=== PATIENT | female | born 1955 | race Two or more races ===

== ENCOUNTER 2016-06-14 17:47 | Emergency (ER) | payer OTHER ==
[~2016-06-14] VITALS: Ht 165.1 cm; Wt 52.2 kg
[~2016-06-14 17:47] MED LIST: FLUO40CA8 PO; GABA-534 PO
--- NOTE | 2016-06-14 17:47 | NUR ---
Presents self to ed dt nausea x 1 week. Denies vomitting. Pt afebrile. patient is also concern about " a pimple" on her labia. Denies hematuria and dysuria. vss
[2016-06-14] MEDS ORDERED: ONDANSETRON 4 MG TAB.RAPDIS SL ONE (18:30)
[2016-06-14] MEDS ORDERED: ONDANSETRON 4 MG TAB.RAPDIS ONE (18:44)
--- NOTE | 2016-06-14 18:48 | NUR ---
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
--- NOTE | 2016-06-14 18:48 | NUR ---
medicated pt as ordered
[2016-06-14 18:56] LABS: BASOPHILS # (AUTO) 0.1 /CMM (0.0-0.2); BASOPHILS % (AUTO) 0.7 % (0.0-2.0); EOSINOPHILS # (AUTO) 0.6 /CMM (0.0-0.7); EOSINOPHILS % (AUTO) 7.9 % (0.0-6.0); HEMATOCRIT 37 % (33-45); HEMOGLOBIN 12.8 g/dL (11.5-14.8); LYMPHOCYTES # (AUTO) 2.5 /CMM (0.8-4.8); LYMPHOCYTES % (AUTO) 31.6 % (20.0-44.0); MEAN CORPUSCULAR HEMOGLOBIN 30 PG (26.0-33.0); MEAN CORPUSCULAR HGB CONC 35 g/dl (31.0-36.0); MEAN CORPUSCULAR VOLUME 86 fL (82-100); MONOCYTES # (AUTO) 0.6 /CMM (0.1-1.30); MONOCYTES % (AUTO) 7.2 % (2.0-12.0); NEUTROPHILS % (AUTO) 52.6 % (43.0-81.0); PLATELET COUNT (AUTO) 177 /CMM (150-450); RDW COEFFICIENT OF VARIATION 12.6 (11.5-15.0); WHITE BLOOD COUNT (AUTO) 7.8 K/uL (4.3-11.0)
[2016-06-14 19:04] LABS: APPEARANCE,URINE Clear (CLEAR); BILIRUBIN,URINE Negative (NEGATIVE); BLOOD, URINE Trace-intact Ery/uL (NEGATIVE); COLOR,URINE Yellow (YELLOW); CREATININE 1.1 mg/dL (0.6-1.3); KETONES,URINE Negative (NEGATIVE); LEUKOCYTE ESTERASE ,URINE Negative (NEGATIVE); NITRITE, URINE Negative (NEGATIVE); PH,URINE 8.5 (5.0-8.0); POTASSIUM 3.9 mmol/L (3.5-5.1); PROTEIN,URINE Negative (NEGATIVE); UGLUCOSE Negative (NEGATIVE); UROBILINOGEN,URINE 0.2 EU/dL (0.2)
[2016-06-14 19:08] LABS: ADD URINE CULTURE NO; BACTERIA,URINE Rare /HPF (None Seen); RBC,URINE 0-2 /HPF (0-2); SQUAMOUS EPITHELIAL CELL,UR Few /HPF (None Seen); WBC,URINE 0-2 /HPF (0-3)
[2016-06-14 19:10] LABS: ALBUMIN 3.6 g/dL (3.4-5.0); BILIRUBIN,DIRECT 0.1 mg/dL (0.0-0.2); BILIRUBIN,TOTAL 0.1 mg/dL (0.2-1.0); TOTAL PROTEIN, SERUM 7.2 g/dL (6.4-8.2)
--- NOTE | 2016-06-14 19:11 | NUR ---
report given to nurse Vegas for carmen
[2016-06-14 20:36] VITALS: BP 120/70
== END 2016-06-14 20:37 | disposition home or self-care (01) ==
LOC: ER 17:49
DX: R11.0 Nausea (principal); R10.13 Epigastric pain; K59.00 Constipation, unspecified; I38 Endocarditis, valve unspecified; F32.9 Major depressive disorder, single episode, unspecified; Z88.0 Allergy status to penicillin; Z88.2 Allergy status to sulfonamides
CPT/HCPCS: 36415; 80048-TC; 80076-TC; 81000-TC; 83690-TC; 85025-TC; A4606; Q0162; Z7610

== ENCOUNTER 2016-12-30 16:09 | Emergency (ER) | payer OTHER ==
[~2016-12-30] VITALS: Ht 167.6 cm; Wt 54.4 kg
[2016-12-30 16:18] VITALS: BP 116/60
== END 2016-12-30 16:43 | disposition home or self-care (01) ==
LOC: ER 16:10
DX: J11.1 Influenza due to unidentified influenza virus with other respiratory manifestations (principal); F32.9 Major depressive disorder, single episode, unspecified; G25.81 Restless legs syndrome; Z88.0 Allergy status to penicillin; Z88.2 Allergy status to sulfonamides
CPT/HCPCS: 99283; A4606; Z7610

== ENCOUNTER 2017-02-16 17:28 | Emergency (ER) | payer OTHER ==
[~2017-02-16] VITALS: Ht 165.1 cm; Wt 52.2 kg
--- NOTE | 2017-02-16 17:40 | NUR ---
PATIENT TO ED DT INTERMITTENT CHEST PAIN X 3 DAYS. PER PT SHE DOES NOT HAVE CHEEST PAIN AT THIS MOMENT, HOWEVER SHE HAD ONE EPISODE TODAY THAT LASTED FOR ONE MINUTE,PAIN WAS NON RADIATING. PATIENT IS AAO4, APPEARS IN NO APPARENT DISTRESS. SKIN IS WARM TO TOUCH AND NON DIAPHORETIC. AFEBRILE. VSS
[2017-02-16] MEDS ORDERED: PRAV40TA3 PO (17:51)
[2017-02-16] MEDS ORDERED: GABA-534 PO (17:51)
[2017-02-16 18:05] LABS: CALCIUM, SERUM 9.3 mg/dL (8.5-10.1); CARBON DIOXIDE 28 mmol/L (21-32); CHLORIDE 101 mmol/L (98-107); GLUCOSE 95 mg/dL (74-106); POTASSIUM 3.5 mmol/L (3.5-5.1); SODIUM SERUM 137 mmol/L (136-145); UREA NITROGEN, BLOOD 15 mg/dL (7-18)
[2017-02-16 18:15] LABS: TROPONIN I < 0.017 ng/mL (0.00-0.056)
[2017-02-16 18:20] LABS: BASOPHILS # (AUTO) 0.1 /CMM (0.0-0.2); BASOPHILS % (AUTO) 0.8 % (0.0-2.0); EOSINOPHILS # (AUTO) 0.4 /CMM (0.0-0.7); EOSINOPHILS % (AUTO) 4.5 % (0.0-6.0); HEMATOCRIT 41 % (33-45); HEMOGLOBIN 13.8 g/dL (11.5-14.8); LYMPHOCYTES # (AUTO) 2.5 /CMM (0.8-4.8); LYMPHOCYTES % (AUTO) 28.3 % (20.0-44.0); MEAN CORPUSCULAR HEMOGLOBIN 29 PG (26.0-33.0); MEAN CORPUSCULAR HGB CONC 34 g/dl (31.0-36.0); MEAN CORPUSCULAR VOLUME 86 fL (82-100); MONOCYTES # (AUTO) 0.7 /CMM (0.1-1.30); MONOCYTES % (AUTO) 7.8 % (2.0-12.0); NEUTROPHILS % (AUTO) 58.6 % (43.0-81.0); PLATELET COUNT (AUTO) 217 /CMM (150-450); RDW COEFFICIENT OF VARIATION 12.6 (11.5-15.0); WHITE BLOOD COUNT (AUTO) 8.7 K/uL (4.3-11.0)
--- NOTE | 2017-02-16 19:03 | NUR ---
REPORT GIVEN TO CIRA HUTCHINS FOR EMILY
--- NOTE | 2017-02-16 19:06 | NUR ---
REPORT RECEIVED FROM [employer] FOR EMILY.
[2017-02-16 19:14] VITALS: BP 124/74
== END 2017-02-16 19:15 | disposition home or self-care (01) ==
LOC: ER 17:29
DX: R07.89 Other chest pain (principal); G25.81 Restless legs syndrome; F32.9 Major depressive disorder, single episode, unspecified; Z88.0 Allergy status to penicillin; Z88.2 Allergy status to sulfonamides
CPT/HCPCS: 36415; 71010; 80048; 84484; 85025; 93005; 99285; A4606; Z7610

== ENCOUNTER 2017-09-21 18:09 | Emergency (ER) | payer OTHER ==
[~2017-09-21] VITALS: Ht 165.1 cm; Wt 53.5 kg
[~2017-09-21 18:09] MED LIST changes: +PRAV40TA3 PO
[2017-09-21 19:24] VITALS: BP 97/50
--- NOTE | 2017-09-21 19:37 | NUR ---
PT CAME 1933 C/C RT SHOULDER PAIN, VS STABLE, AFEBRILE, SEEN AND EVALUATED BY DR LEIGH, AWAITING FOR ORDERS.
[2017-09-21] MEDS ORDERED: ACETAMINOPHEN ES 500 MG TABLET ONE (20:16)
[2017-09-21] MEDS ORDERED: ACETAMINOPHEN ES 500 MG TABLET PO ONE (20:30)
== END 2017-09-21 22:57 | disposition home or self-care (01) ==
LOC: ER 18:14
DX: M25.511 Pain in right shoulder (principal); F32.9 Major depressive disorder, single episode, unspecified; G25.81 Restless legs syndrome; Z88.0 Allergy status to penicillin; Z88.2 Allergy status to sulfonamides; Z79.899 Other long term (current) drug therapy
CPT/HCPCS: 73030-TC; A4606; Z7610

== ENCOUNTER 2018-01-31 14:26 | Emergency (ER) | payer OTHER ==
[~2018-01-31] VITALS: Ht 165.1 cm; Wt 56.2 kg
--- NOTE | 2018-01-31 14:50 | NUR ---
Chasity douglass in EDM - 01/31/18 at 1533 by LESLEE PT BIB SELF C/O INTERMITTENT CHEST PAIN SINCE LAST WEEK. PT IS AOX4, NOT IN RESPIRATORY DISTRESS, V/S STABLE, KEPT RESTED AND COMFORTABLE.
--- NOTE | 2018-01-31 14:50 | NUR ---
AAOX3, C/O CP X1.5 WKS INTERMITTENTLY. RR IS EVEN AND UNLABORED WITH NAD NOTED. PLACED ON THE MONITOR. AWAITING MD FOR EVAL.
[2018-01-31 15:11] LABS: BASOPHILS % (AUTO) 0.7 % (0.0-2.0); EOSINOPHILS % (AUTO) 4.4 % (0.0-6.0); HEMATOCRIT 39 % (33-45); HEMOGLOBIN 12.9 g/dL (11.5-14.8); LYMPHOCYTES # (AUTO) 2.2 /CMM (0.8-4.8); LYMPHOCYTES % (AUTO) 30.5 % (20.0-44.0); MEAN CORPUSCULAR HGB CONC 33 g/dl (31.0-36.0); MEAN CORPUSCULAR VOLUME 88 fL (82-100); MONOCYTES # (AUTO) 0.5 /CMM (0.1-1.30); MONOCYTES % (AUTO) 7.3 % (2.0-12.0); NEUTROPHILS # (AUTO) 4.2 /CMM (1.8-8.9); NEUTROPHILS % (AUTO) 57.1 % (43.0-81.0); PLATELET COUNT (AUTO) 186 /CMM (150-450); RED BLOOD CELL COUNT(AUTO) 4.38 MIL/uL (4.0-5.2); WHITE BLOOD COUNT (AUTO) 7.3 K/uL (4.3-11.0)
--- NOTE | 2018-01-31 15:22 | NUR ---
Chasity douglass in ED - 01/31/18 at 1542 by LESLEE PT WHEELED TO EVIE VIA LASHELL.
[2018-01-31 15:24] LABS: CALCIUM, SERUM 8.6 mg/dL (8.5-10.1); CARBON DIOXIDE 29 mmol/L (21-32); CHLORIDE 101 mmol/L (98-107); CREATININE 1.1 mg/dL (0.6-1.3); GLUCOSE 129 mg/dL (74-106); POTASSIUM 3.5 mmol/L (3.5-5.1); SODIUM SERUM 138 mmol/L (136-145); UREA NITROGEN, BLOOD 23 mg/dL (7-18)
--- NOTE | 2018-01-31 17:12 | NUR ---
IV removed. Catheter intact and site benign. Pressure and 4x4 applied to site. No bleeding noted. Patient discharged to home in stable condition. Written and verbal after care instructions given. Patient verbalizes understanding of instruction.
--- NOTE | 2018-01-31 17:12 | NUR ---
IV removed. Catheter intact and site benign. Pressure and 4x4 applied to site. No bleeding noted.Patient discharged to home in stable condition. Written and verbal after care instructions given. Patient verbalizes understanding of instruction.
[2018-01-31 17:13] VITALS: BP 112/79
== END 2018-01-31 17:16 | disposition home or self-care (01) ==
LOC: ER 14:29
DX: R07.89 Other chest pain (principal); F32.9 Major depressive disorder, single episode, unspecified; Z88.0 Allergy status to penicillin; Z88.2 Allergy status to sulfonamides; Z60.2 Problems related to living alone; Z79.899 Other long term (current) drug therapy
CPT/HCPCS: 36415; 71045-TC; 80048-TC; 84484-TC; 85025-TC; 85730-TC; A4606; Z7610

== ENCOUNTER 2018-07-06 15:11 | Emergency (ER) | payer OTHER ==
[~2018-07-06] VITALS: Ht 165.1 cm; Wt 68.0 kg
--- NOTE | 2018-07-06 15:17 | NUR ---
CAME IN FOR LEFT SIDED CP SINCE 10AM, WAS SEEN IN CLINIC LAST WEEK, WAS ADVISED TO HAVE CT IN [place] [facility]. NO CT DONE. 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
--- NOTE | 2018-07-06 15:31 | NUR ---
MELQUIADES MELENDEZ AT BEDSIDE
[2018-07-06] MEDS ORDERED: POLY15DR40 EACHEYE (15:34)
[2018-07-06 15:41] LABS: BASOPHILS % (AUTO) 0.8 % (0.0-2.0); EOSINOPHILS % (AUTO) 4.7 % (0.0-6.0); HEMATOCRIT 40 % (33-45); HEMOGLOBIN 13.3 g/dL (11.5-14.8); LYMPHOCYTES # (AUTO) 2.5 /CMM (0.8-4.8); LYMPHOCYTES % (AUTO) 40.9 % (20.0-44.0); MEAN CORPUSCULAR HGB CONC 33 g/dl (31.0-36.0); MEAN CORPUSCULAR VOLUME 89 fL (82-100); MONOCYTES # (AUTO) 0.4 /CMM (0.1-1.30); MONOCYTES % (AUTO) 7.2 % (2.0-12.0); NEUTROPHILS # (AUTO) 2.9 /CMM (1.8-8.9); NEUTROPHILS % (AUTO) 46.4 % (43.0-81.0); PLATELET COUNT (AUTO) 185 /CMM (150-450); RED BLOOD CELL COUNT(AUTO) 4.51 MIL/uL (4.0-5.2); WHITE BLOOD COUNT (AUTO) 6.2 K/uL (4.3-11.0)
[2018-07-06 15:49] LABS: CARBON DIOXIDE 28 mmol/L (21-32); CHLORIDE 102 mmol/L (98-107); GLUCOSE 152 mg/dL (74-106); POTASSIUM 3.7 mmol/L (3.5-5.1); SODIUM SERUM 139 mmol/L (136-145); UREA NITROGEN, BLOOD 12 mg/dL (7-18)
[2018-07-06 15:55] LABS: ALANINE AMINOTRANSFERASE 19 U/L (12-78); ALBUMIN 3.6 g/dL (3.4-5.0); ALKALINE PHOSPHATASE 61 U/L (46-116); ASPARTATE AMINOTRANSFERASE 16 U/L (15-37); BILIRUBIN,DIRECT 0.1 mg/dL (0.0-0.2); BILIRUBIN,TOTAL 0.3 mg/dL (0.2-1.0); LIPASE 191 U/L (73-393); TOTAL PROTEIN, SERUM 7.4 g/dL (6.4-8.2)
[2018-07-06] MEDS ORDERED: IV NS 0.9% 500 ML BAG IV ONE (16:00)
--- NOTE | 2018-07-06 16:00 | NUR ---
CHASER TAR AT BEDSIDE
[2018-07-06 16:30] VITALS: BP 106/64
== END 2018-07-06 16:30 | disposition home or self-care (01) ==
LOC: ER 15:13
DX: G89.29 Other chronic pain (principal); R07.89 Other chest pain; E78.00 Pure hypercholesterolemia, unspecified; F32.9 Major depressive disorder, single episode, unspecified; Z88.0 Allergy status to penicillin; Z88.2 Allergy status to sulfonamides; Z60.2 Problems related to living alone
CPT/HCPCS: 36415; 71045; 80048; 80076; 83690; 84484; 85025; 99284; J7040

== ENCOUNTER 2018-11-21 04:09 | Emergency (ER) | payer OTHER ==
[~2018-11-21] VITALS: Ht 165.1 cm; Wt 46.7 kg
[~2018-11-21 04:09] MED LIST changes: +POLY15DR40 EACHEYE
--- NOTE | 2018-11-21 04:15 | NUR ---
PT BIBSELF C/O LOW BP, PT STATES BP BEING IN THE 90S, PT AT THIS TIME HAS NORMAL BP. PT AXO4. RESPIRATIONS EVEN AND UNLABORED. PT AMBULATORY WITH STEADY GAIT. PT PUT ON THE BILLET SAWYER AND PULSE OX.
--- NOTE | 2018-11-21 04:36 | NUR ---
MAILROOM PERSONNEL AT BEDSIDE, LAB DRAWN THROUGH 20G LAC AND SENT TO LABS.
[2018-11-21] MEDS: IV NS 0.9% 1,000 ML BAG IV ONE (04:38)
[2018-11-21 04:47] LABS: BASOPHILS % (AUTO) 0.6 % (0.0-2.0); EOSINOPHILS % (AUTO) 6.4 % (0.0-6.0); HEMATOCRIT 37 % (33-45); HEMOGLOBIN 12.2 g/dL (11.5-14.8); LYMPHOCYTES # (AUTO) 2.6 /CMM (0.8-4.8); LYMPHOCYTES % (AUTO) 33.2 % (20.0-44.0); MEAN CORPUSCULAR HGB CONC 34 g/dl (31.0-36.0); MEAN CORPUSCULAR VOLUME 89 fL (82-100); MONOCYTES # (AUTO) 0.6 /CMM (0.1-1.30); MONOCYTES % (AUTO) 7.6 % (2.0-12.0); NEUTROPHILS # (AUTO) 4.1 /CMM (1.8-8.9); NEUTROPHILS % (AUTO) 52.2 % (43.0-81.0); PLATELET COUNT (AUTO) 187 /CMM (150-450); RED BLOOD CELL COUNT(AUTO) 4.12 MIL/uL (4.0-5.2); WHITE BLOOD COUNT (AUTO) 7.8 K/uL (4.3-11.0)
[2018-11-21 05:02] LABS: CALCIUM, SERUM 9.1 mg/dL (8.5-10.1); CARBON DIOXIDE 29 mmol/L (21-32); CHLORIDE 104 mmol/L (98-107); GLUCOSE 78 mg/dL (74-106); POTASSIUM 3.8 mmol/L (3.5-5.1); SODIUM SERUM 141 mmol/L (136-145); UREA NITROGEN, BLOOD 20 mg/dL (7-18)
[2018-11-21 05:14] LABS: ALANINE AMINOTRANSFERASE 17 U/L (12-78); ALBUMIN 3.4 g/dL (3.4-5.0); ALKALINE PHOSPHATASE 63 U/L (46-116); ASPARTATE AMINOTRANSFERASE 14 U/L (15-37); B-TYPE NATRIURETIC PEPTIDE 151 PG/ML (0-125); BILIRUBIN,DIRECT 0.1 mg/dL (0.0-0.2); BILIRUBIN,TOTAL 0.2 mg/dL (0.2-1.0)
[2018-11-21 05:33] VITALS: BP 116/74
--- NOTE | 2018-11-21 05:33 | NUR ---
Patient discharged to home in stable condition. Written and verbal after care instructions given. Patient verbalizes understanding of instruction. IV removed. Catheter intact and site benign. Pressure and 4x4 applied to site. No bleeding noted.
== END 2018-11-21 05:33 | disposition home or self-care (01) ==
LOC: ER 04:09
DX: E86.0 Dehydration (principal); E78.00 Pure hypercholesterolemia, unspecified; F32.9 Major depressive disorder, single episode, unspecified; Z88.0 Allergy status to penicillin; Z88.2 Allergy status to sulfonamides; Z60.2 Problems related to living alone
CPT/HCPCS: 36415; 80048; 80076; 83880; 84484; 85025; 93005; 96360; 99284; J7030

== ENCOUNTER 2018-12-12 04:34 | Emergency (ER) | payer OTHER ==
[~2018-12-12] VITALS: Ht 165.1 cm; Wt 45.4 kg
[2018-12-12 04:39] VITALS: BP 121/79
[2018-12-12] MEDS ORDERED: TDAP [DIPH/PERTUSSIS/TET] 0.5 ML VIAL IM ONE ×2 (05:00→05:03)
--- NOTE | 2018-12-12 05:14 | NUR ---
RADIOLOGY AT BEDSIDE FOR XRAY
== END 2018-12-12 05:56 | disposition home or self-care (01) ==
LOC: ER 04:41
DX: S80.02XA Contusion of left knee, initial encounter (principal); S80.01XA Contusion of right knee, initial encounter; E78.00 Pure hypercholesterolemia, unspecified; F32.9 Major depressive disorder, single episode, unspecified; Z88.0 Allergy status to penicillin; Z88.2 Allergy status to sulfonamides; Z60.2 Problems related to living alone; W01.0XXA Fall on same level from slipping, tripping and stumbling without subsequent striking against object, initial encounter; Y93.89 Activity, other specified; Y92.89 Other specified places as the place of occurrence of the external cause; Y99.9 Unspecified external cause status
CPT/HCPCS: 73560-TC; 73564-TC; 90715

== ENCOUNTER 2018-12-14 21:13 | Emergency (ER) | payer OTHER ==
[~2018-12-14] VITALS: Ht 165.1 cm; Wt 45.4 kg
[2018-12-14 21:24] VITALS: BP 119/76
== END 2018-12-14 22:30 | disposition home or self-care (01) ==
LOC: ER 21:14
DX: S80.212D Abrasion, left knee, subsequent encounter (principal); S80.211D Abrasion, right knee, subsequent encounter; E78.00 Pure hypercholesterolemia, unspecified; F32.9 Major depressive disorder, single episode, unspecified; Z88.0 Allergy status to penicillin; Z88.2 Allergy status to sulfonamides; Z60.2 Problems related to living alone; W01.0XXD Fall on same level from slipping, tripping and stumbling without subsequent striking against object, subsequent encounter

== ENCOUNTER 2019-08-06 12:01 | Emergency (ER) | payer OTHER ==
[~2019-08-06] VITALS: Ht 165.1 cm; Wt 45.4 kg
--- NOTE | 2019-08-06 12:10 | NUR ---
c/o nausea vomiting, diarrhea, weak, no appetite to eat s/p chemo saturday. Patient a/ox4, breathing even and unlabored, no sob noted, needs attended, kept comfortable.
[2019-08-06] MEDS ORDERED: FAMOTIDINE/PF INJ 20 MG/2 ML VIAL IV ONE ×2 (12:29→12:30)
[2019-08-06] MEDS ORDERED: ONDANSETRON HCL/PF 4 MG/2 ML VIAL ONE (12:29)
[2019-08-06] MEDS ORDERED: ONDANSETRON HCL/PF 4 MG/2 ML VIAL IVP ONE (12:30)
[2019-08-06] MEDS ORDERED: IV NS 0.9% 1,000 ML BAG IV ONE (12:30)
[2019-08-06 12:40] LABS: HEMOGLOBIN 11.4 g/dL (11.5-14.8); MEAN CORPUSCULAR VOLUME 89 fL (82-100); MONOCYTES # (AUTO) 0.9 /CMM (0.1-1.30)
[2019-08-06 12:45] LABS: BASOPHILS % (AUTO) 1.2 % (0.0-2.0); EOSINOPHILS % (AUTO) 4.4 % (0.0-6.0); HEMATOCRIT 35 % (33-45); LYMPHOCYTES # (AUTO) 0.5 /CMM (0.8-4.8); LYMPHOCYTES % (AUTO) 33.9 % (20.0-44.0); MEAN CORPUSCULAR HGB CONC 33 g/dl (31.0-36.0); MONOCYTES % (AUTO) 56.2 % (2.0-12.0); NEUTROPHILS # (AUTO) 0.1 /CMM (1.8-8.9); NEUTROPHILS % (AUTO) 4.3 % (43.0-81.0); PLATELET COUNT (AUTO) 99 /CMM (150-450); RED BLOOD CELL COUNT(AUTO) 3.89 MIL/uL (4.0-5.2)
[2019-08-06 12:46] LABS: CALCIUM, SERUM 8.7 mg/dL (8.5-10.1); CREATININE 1.1 mg/dL (0.6-1.3); POTASSIUM 4.8 mmol/L (3.5-5.1)
[2019-08-06 12:47] LABS: WHITE BLOOD COUNT (AUTO) 1.6 K/uL (4.3-11.0)
[2019-08-06] MEDS ORDERED: CHEMO IV (12:49)
[2019-08-06] MEDS ORDERED: DEXA4TAB PO (12:49)
[2019-08-06] MEDS ORDERED: CALC-7 PO (12:49)
[2019-08-06] MEDS ORDERED: ASCO-352 PO (12:49)
[2019-08-06] MEDS ORDERED: ONDA8TAB6 GT (12:49)
[2019-08-06 12:52] LABS: ALBUMIN 3.1 g/dL (3.4-5.0); BILIRUBIN,DIRECT 0.1 mg/dL (0.0-0.2); BILIRUBIN,TOTAL 0.5 mg/dL (0.2-1.0); TOTAL PROTEIN, SERUM 6.6 g/dL (6.4-8.2)
--- NOTE | 2019-08-06 13:12 | NUR ---
MOVE SHEET SUBMITTED AND CALLED FOR MS BED.
[2019-08-06 13:21] LABS: EOSINOPHILS % (MANUAL) 4 % (0-4); LYMPHOCYTES % (MANUAL) 39 % (16-48); MONOCYTES % (MANUAL) 53 % (0-11.0); NEUTROPHILS % (MANUAL) 4 (42-76)
--- NOTE | 2019-08-06 13:30 | NUR ---
CALLED DR. JOHNSTON AT [facility] [phone] WILL BE EMAILED TO CALL US BACK.
--- NOTE | 2019-08-06 13:45 | NUR ---
dr. angulo returned call and is speaking to dr. kuhn
[2019-08-06 14:16] VITALS: BP 102/52
== END 2019-08-06 14:17 | disposition home or self-care (01) ==
LOC: ER 12:06
DX: R11.2 Nausea with vomiting, unspecified (principal); R19.7 Diarrhea, unspecified; D72.819 Decreased white blood cell count, unspecified; E78.00 Pure hypercholesterolemia, unspecified; Z85.3 Personal history of malignant neoplasm of breast; Z88.0 Allergy status to penicillin; Z88.2 Allergy status to sulfonamides; Z79.899 Other long term (current) drug therapy
CPT/HCPCS: 36415; 80048; 80076; 83690; 85025; 87081; 96361; 96374; 96375; 99284; J2405; J3490

== ENCOUNTER 2019-08-07 13:39 | Emergency (ER) | payer OTHER ==
[~2019-08-07] VITALS: Ht 165.1 cm; Wt 45.4 kg
[~2019-08-07 13:39] MED LIST changes: +ASCO-352 PO; +CALC-7 PO; +CHEMO IV; +DEXA4TAB PO; +ONDA8TAB6 GT
[2019-08-07 13:54] VITALS: BP 92/60
--- NOTE | 2019-08-07 15:10 | NUR ---
For discharde- Patient discharged to home in stable condition. Written and verbal after care instructions given. Patient verbalizes understanding of instruction.
[2019-08-08] MEDS ORDERED: CIPR500T5 PO (09:30)
[2019-08-08] MEDS ORDERED: METR-147 PO (09:30)
[2019-08-08] MEDS ORDERED: LORA-259 PO (09:32)
== END 2019-08-07 15:10 | disposition home or self-care (01) ==
LOC: ER 13:43
DX: L30.8 Other specified dermatitis (principal); E78.00 Pure hypercholesterolemia, unspecified; F32.9 Major depressive disorder, single episode, unspecified; Z85.3 Personal history of malignant neoplasm of breast; Z88.2 Allergy status to sulfonamides; Z88.0 Allergy status to penicillin; Z60.2 Problems related to living alone; Z79.899 Other long term (current) drug therapy

== ENCOUNTER 2019-08-08 07:39 | Emergency (ER) | payer OTHER ==
[~2019-08-08] VITALS: Ht 160 cm; Wt 47.2 kg
--- NOTE | 2019-08-08 07:45 | NUR ---
PT BIB SELF C/O FEELING WEAK AND SICK "LAST CHEMO 2 WEEKS AGO" PT IS AAOX4, NOT IN RESPIRATORY DISTRESS, HOOKED TO MONITOR, KEPT RESTED AND COMFORTABLE, WILL CONTINUE TO MONITOR.
--- NOTE | 2019-08-08 07:50 | NUR ---
AT BEDSIDE FOR EVAL.
[2019-08-08] MEDS ORDERED: ONDANSETRON HCL/PF 4 MG/2 ML VIAL ONE (07:57)
[2019-08-08] MEDS ORDERED: IV NS 0.9% 1,000 ML BAG IV ONE (08:00)
[2019-08-08] MEDS ORDERED: ONDANSETRON HCL/PF 4 MG/2 ML VIAL IVP ONE (08:00)
--- NOTE | 2019-08-08 08:10 | NUR ---
IV LINE ESTABLISHED BLOOD DRAWN AND SENT TO LAB.
--- NOTE | 2019-08-08 08:23 | NUR ---
CALLED [facility] LAB FOR BLOOD SPECIMEN.
[2019-08-08 08:37] LABS: BASOPHILS % (AUTO) 0.1 % (0.0-2.0); EOSINOPHILS % (AUTO) 0.5 % (0.0-6.0); HEMOGLOBIN 10.8 g/dL (11.5-14.8)
[2019-08-08 08:41] LABS: CALCIUM, SERUM 8.9 mg/dL (8.5-10.1); CREATININE 1.2 mg/dL (0.6-1.3); POTASSIUM 3.7 mmol/L (3.5-5.1)
[2019-08-08 08:46] LABS: HEMATOCRIT 34 % (33-45); LYMPHOCYTES # (AUTO) 2.7 /CMM (0.8-4.8); LYMPHOCYTES % (AUTO) 7.2 % (20.0-44.0); MEAN CORPUSCULAR HGB CONC 32 g/dl (31.0-36.0); MEAN CORPUSCULAR VOLUME 89 fL (82-100); MONOCYTES # (AUTO) 0.4 /CMM (0.1-1.30); NEUTROPHILS # (AUTO) 34.8 /CMM (1.8-8.9); NEUTROPHILS % (AUTO) 91.2 % (43.0-81.0); PLATELET COUNT (AUTO) 139 /CMM (150-450); RED BLOOD CELL COUNT(AUTO) 3.79 MIL/uL (4.0-5.2)
[2019-08-08 08:48] LABS: WHITE BLOOD COUNT (AUTO) 38.1 K/uL (4.3-11.0)
--- NOTE | 2019-08-08 09:24 | NUR ---
URINE SPECIMEN COLLECTED AND SENT TO LAB.
[2019-08-08] MEDS ORDERED: CIPR500T5 PO (09:30)
[2019-08-08] MEDS ORDERED: METR-147 PO (09:30)
[2019-08-08] MEDS ORDERED: VANCOMYCIN 1 GM in IV D5W 250 ML IV ONE (09:30)
[2019-08-08] MEDS ORDERED: LORA-259 PO (09:32)
--- NOTE | 2019-08-08 09:32 | NUR ---
DAIRY FEED WORKER AT BEDSIDE FOR XRAY.
[2019-08-08] MEDS ORDERED: IOHEXOL-300 100 ML VIAL IV ONE (09:41)
[2019-08-08] MEDS ORDERED: CT SWABBABLE VALVE TRANS SET 1 EA INFUS.SET MC ONE (09:41)
[2019-08-08] MEDS ORDERED: IV NS 0.9% 250 ML IV ONE (09:41)
[2019-08-08 09:44] LABS: APPEARANCE,URINE Clear (CLEAR); BILIRUBIN,URINE Negative (NEGATIVE); BLOOD, URINE Negative Ery/uL (NEGATIVE); COLOR,URINE Yellow (YELLOW); KETONES,URINE Negative (NEGATIVE); LEUKOCYTE ESTERASE ,URINE Negative (NEGATIVE); NITRITE, URINE Negative (NEGATIVE); PROTEIN,URINE Negative (NEGATIVE); UGLUCOSE Negative (NEGATIVE); UROBILINOGEN,URINE 0.2 EU/dL (0.2)
--- NOTE | 2019-08-08 09:53 | NUR ---
patient came back from ct
--- NOTE | 2019-08-08 10:03 | NUR ---
CALLED FOR MS BED.
--- NOTE | 2019-08-08 10:16 | NUR ---
CALLED DR. LIMON [phone]
--- NOTE | 2019-08-08 11:00 | NUR ---
PT AMBULANCE AUTH # [id number]
[2019-08-08] MEDS ORDERED: diphenhydrAMINE HCL 50 MG/ML VIAL IV ONE (11:30)
[2019-08-08] MEDS ORDERED: diphenhydrAMINE HCL 50 MG/ML VIAL ONE (11:31)
[2019-08-08 11:56] LABS: BAND % (MANUAL) 5 % (0.0-5.0); LYMPHOCYTES % (MANUAL) 14 % (16-48); MONOCYTES % (MANUAL) 16 % (0-11.0); NEUTROPHILS % (MANUAL) 65 (42-76)
--- NOTE | 2019-08-08 12:12 | NUR ---
TRANSFER INFO: [facility] ROOM [id number] RN FOR REPORT [phone]
--- NOTE | 2019-08-08 12:21 | NUR ---
NOEMI SILVERMAN [id number] TRIP#[id number]
--- NOTE | 2019-08-08 13:05 | NUR ---
report given to Ladarius JORDAN for carmen.
[2019-08-08 15:10] VITALS: BP 125/81
--- NOTE | 2019-08-08 15:12 | NUR ---
patient picked up by the private ambulance in no distress going to [facility]. Denies any pain at this time.
== END 2019-08-08 15:12 | disposition short-term general hospital (02) ==
LOC: ER 07:41
DX: A09 Infectious gastroenteritis and colitis, unspecified (principal); D72.829 Elevated white blood cell count, unspecified; F32.9 Major depressive disorder, single episode, unspecified; Z88.0 Allergy status to penicillin; Z88.2 Allergy status to sulfonamides; Z60.2 Problems related to living alone; Z79.899 Other long term (current) drug therapy
CPT/HCPCS: 36415; 71045; 74178; 80048; 81001; 83605; 84145; 84484; 85025; 85730; 87040 ×2; 87086; 93005; 96361; 96365; 96375; 99285; J1200; J2405; J3370; J7030; J7050; Q9967; 81000-TC; J7060

== ENCOUNTER 2019-08-25 09:16 | Emergency (ER) | payer OTHER ==
[~2019-08-25] VITALS: Ht 165.1 cm; Wt 47.2 kg
[~2019-08-25 09:16] MED LIST changes: +CIPR500T5 PO; +LORA-259 PO; +METR-147 PO
--- NOTE | 2019-08-25 09:20 | NUR ---
SEEN AND EXAMINED BY .
[2019-08-25 09:23] VITALS: BP 99/49
--- NOTE | 2019-08-25 10:19 | NUR ---
Patient discharged to home in stable condition. Written and verbal after care instructions given. Patient verbalizes understanding of instruction.
== END 2019-08-25 10:20 | disposition home or self-care (01) ==
LOC: ER 09:16
DX: Z00.8 Encounter for other general examination (principal); F32.9 Major depressive disorder, single episode, unspecified; Z88.0 Allergy status to penicillin; Z88.2 Allergy status to sulfonamides; Z60.2 Problems related to living alone; Z79.899 Other long term (current) drug therapy

== ENCOUNTER 2021-08-05 13:29 | Emergency (ER) | payer OTHER ==
[~2021-08-05] VITALS: Ht 165.1 cm; Wt 40.8 kg
--- NOTE | 2021-08-05 13:45 | NUR ---
RECEIVED PT 65 YRS FEMALE C/O CHEST PAIN STARTED THIS MORNING 09/10 NO N/V NO RADITION
[2021-08-05 14:15] LABS: BASOPHILS % (AUTO) 0.7 % (0.0-2.0); EOSINOPHILS % (AUTO) 3.7 % (0.0-6.0); HEMATOCRIT 39 % (33-45); HEMOGLOBIN 12.9 g/dL (11.5-14.8); LYMPHOCYTES # (AUTO) 1.7 K/uL (0.8-4.8); LYMPHOCYTES % (AUTO) 31.3 % (20.0-44.0); MEAN CORPUSCULAR HGB CONC 33 g/dl (31.0-36.0); MEAN CORPUSCULAR VOLUME 88 fL (82-100); MONOCYTES # (AUTO) 0.4 K/uL (0.1-1.30); NEUTROPHILS # (AUTO) 3.1 K/uL (1.8-8.9); NEUTROPHILS % (AUTO) 57.3 % (43.0-81.0); PLATELET COUNT (AUTO) 157 K/uL (150-450); RED BLOOD CELL COUNT(AUTO) 4.44 MIL/uL (4.0-5.2); WHITE BLOOD COUNT (AUTO) 5.4 K/uL (4.3-11.0)
--- NOTE | 2021-08-05 14:20 | NUR ---
COVID TEST COLLECTED AND SENT
[2021-08-05 14:29] LABS: ALANINE AMINOTRANSFERASE 31 U/L (12-78); ALBUMIN 3.7 g/dL (3.4-5.0); ALKALINE PHOSPHATASE 55 U/L (46-116); ASPARTATE AMINOTRANSFERASE 18 U/L (15-37); BILIRUBIN,DIRECT 0.1 mg/dL (0.0-0.2); BILIRUBIN,TOTAL 0.4 mg/dL (0.2-1.0); CALCIUM, SERUM 9.4 mg/dL (8.5-10.1); CARBON DIOXIDE 33 mmol/L (21-32); CHLORIDE 104 mmol/L (98-107); CREATININE 0.9 mg/dL (0.6-1.3); GLUCOSE 87 mg/dL (74-106); POTASSIUM 4.3 mmol/L (3.5-5.1); SODIUM SERUM 139 mmol/L (136-145); TOTAL PROTEIN, SERUM 7.4 g/dL (6.4-8.2); UREA NITROGEN, BLOOD 14 mg/dL (7-18)
[2021-08-05] MEDS ORDERED: ANAS1TAB50 PO (14:35)
[2021-08-05] MEDS ORDERED: CALC-1143 PO (14:35)
[2021-08-05] MEDS ORDERED: ALEN70TA80 PO (14:35)
[2021-08-05] MEDS ORDERED: ZINC30TA2 PO (14:36)
[2021-08-05] MEDS ORDERED: MAGN400T26 PO (14:36)
[2021-08-05] MEDS ORDERED: CHOL100043 PO (14:36)
--- NOTE | 2021-08-05 15:24 | NUR ---
wating for room inpt
[2021-08-05] MEDS ORDERED: ASPIRIN 325 MG TABLET PO ONE (16:00)
[2021-08-05] MEDS ORDERED: ASPIRIN 325 MG TABLET ONE (16:02)
--- NOTE | 2021-08-05 16:30 | NUR ---
DR. EDWARDS ATTEMPTED TO DO PEER TO PEER. DR. LIMON IS NOT ANSWERING THE PHONE
--- NOTE | 2021-08-05 16:59 | NUR ---
NO CHEST PAIN OR SOB
--- NOTE | 2021-08-05 17:08 | NUR ---
DR. EDWARDS NOW SPEAKING TO DR. LIMON
[2021-08-05] MEDS ORDERED: MORPHINE SULFATE INJ 4 MG/ML DISP.SYRIN ONE (17:09)
[2021-08-05] MEDS ORDERED: ONDANSETRON HCL/PF 4 MG/2 ML VIAL ONE (17:09)
[2021-08-05] MEDS ORDERED: ONDANSETRON HCL/PF 4 MG/2 ML VIAL IV ONE (17:30)
[2021-08-05] MEDS ORDERED: MORPHINE SULFATE INJ 2 MG/ML DISP.SYRIN IV ONE (17:30)
--- NOTE | 2021-08-05 18:11 | NUR ---
WATING FOR TELMETERY BED NO CHEST PAIN AMBLULTE TO BR VODING NO COMPLAIN
--- NOTE | 2021-08-05 18:20 | NUR ---
PT SIGN AMA REFUSED TO TUSHAR FOR
--- NOTE | 2021-08-05 18:20 | NUR ---
PT REFUSED TO TUSHAR FOR ROOM TO BE INPT DR. LAWS NOTEFY AND AWARE AND REQUSTED TO SIGN AMA PT FULLY AWAKE AND ALERT WALKING WITH STADY GAIT
[2021-08-05 18:37] VITALS: BP 104/59
== END 2021-08-05 18:37 | disposition left against medical advice (07) ==
LOC: ER 13:53
DX: R07.9 Chest pain, unspecified (principal); E78.5 Hyperlipidemia, unspecified; G25.81 Restless legs syndrome; F32.A Depression, unspecified; I10 Essential (primary) hypertension; Z20.822 Contact with and (suspected) exposure to COVID-19; Z79.899 Other long term (current) drug therapy; Z85.3 Personal history of malignant neoplasm of breast; Z88.0 Allergy status to penicillin; Z88.2 Allergy status to sulfonamides; Z92.21 Personal history of antineoplastic chemotherapy; Z92.3 Personal history of irradiation; Z82.49 Family history of ischemic heart disease and other diseases of the circulatory system; Z53.29 Procedure and treatment not carried out because of patient's decision for other reasons
CPT/HCPCS: 36415; 71045; 80048; 80076; 84484; 85025; 87426; 93005; 99285; C9803; J2270; J2405

== ENCOUNTER 2021-11-18 12:35 | Emergency (ER) | payer MEDICARE, OTHER ==
[~2021-11-18] VITALS: Ht 162.6 cm; Wt 45.4 kg
[~2021-11-18 12:35] MED LIST changes: +ALEN70TA80 PO; +ANAS1TAB50 PO; -ASCO-352 PO; +CALC-1143 PO; -CALC-7 PO; -CHEMO IV; +CHOL100043 PO; -CIPR500T5 PO; -DEXA4TAB PO; -LORA-259 PO; +MAGN400T26 PO; -METR-147 PO; -ONDA8TAB6 GT; -POLY15DR40 EACHEYE; +ZINC30TA2 PO
--- NOTE | 2021-11-18 13:21 | NUR ---
IV LINE ESTABLISHED ON LAC #20, BLOOD DRAWN AND SENT TO LAB
[2021-11-18 13:24] LABS: BASOPHILS % (AUTO) 0.4 % (0.0-2.0); EOSINOPHILS % (AUTO) 5.8 % (0.0-6.0); HEMATOCRIT 36 % (33-45); HEMOGLOBIN 11.9 g/dL (11.5-14.8); LYMPHOCYTES # (AUTO) 1.6 K/uL (0.8-4.8); LYMPHOCYTES % (AUTO) 27.3 % (20.0-44.0); MEAN CORPUSCULAR HGB CONC 33 g/dl (31.0-36.0); MEAN CORPUSCULAR VOLUME 89 fL (82-100); MONOCYTES # (AUTO) 0.5 K/uL (0.1-1.30); MONOCYTES % (AUTO) 7.7 % (2.0-12.0); NEUTROPHILS # (AUTO) 3.5 K/uL (1.8-8.9); NEUTROPHILS % (AUTO) 58.8 % (43.0-81.0); PLATELET COUNT (AUTO) 155 K/uL (150-450); RED BLOOD CELL COUNT(AUTO) 4.09 MIL/uL (4.0-5.2); WHITE BLOOD COUNT (AUTO) 5.9 K/uL (4.3-11.0)
[2021-11-18 13:38] LABS: CARBON DIOXIDE 30 mmol/L (21-32); CHLORIDE 103 mmol/L (98-107); CREATININE 0.9 mg/dL (0.6-1.3); GLUCOSE 84 mg/dL (74-106); SODIUM SERUM 137 mmol/L (136-145); UREA NITROGEN, BLOOD 20 mg/dL (7-18)
[2021-11-18 13:46] LABS: ALANINE AMINOTRANSFERASE 29 U/L (12-78); ALBUMIN 3.3 g/dL (3.4-5.0); ALKALINE PHOSPHATASE 34 U/L (46-116); ASPARTATE AMINOTRANSFERASE 23 U/L (15-37); BILIRUBIN,DIRECT 0.1 mg/dL (0.0-0.2); BILIRUBIN,TOTAL 0.3 mg/dL (0.2-1.0); TOTAL PROTEIN, SERUM 6.9 g/dL (6.4-8.2)
--- NOTE | 2021-11-18 14:23 | NUR ---
IV removed. Catheter intact and site benign. Pressure and 4x4 applied to site. No bleeding noted.
[2021-11-18 14:24] VITALS: BP 99/64
--- NOTE | 2021-11-18 14:24 | NUR ---
Patient discharged to home in stable condition. Written and verbal after care instructions given. Patient verbalizes understanding of instruction.
== END 2021-11-18 14:25 | disposition home or self-care (01) ==
LOC: ER 12:43
DX: R07.89 Other chest pain (principal); E78.00 Pure hypercholesterolemia, unspecified; F32.A Depression, unspecified; Z85.3 Personal history of malignant neoplasm of breast; Z60.2 Problems related to living alone; Z79.899 Other long term (current) drug therapy
CPT/HCPCS: 36415; 71045-TC; 80048-TC; 80076-TC; 84484-TC; 85025-TC